=== PATIENT | female | born 1935 | race Caucasian/White ===

== ENCOUNTER 2016-09-22 16:05 | Inpatient (IN) | payer MEDICARE ==
[~2016-09-22] VITALS: Ht 165.1 cm; Wt 75.0 kg
[2016-09-22 16:07] VITALS: BP 158/74; PULSE 104; RESP 24; TEMP 97.4; O2SAT 98
[2016-09-22] MEDS ORDERED: ONDANSETRON HCL 4 MG/2 ML VIAL IV PUSH ONE (16:30)
[2016-09-22] MEDS ORDERED: SODIUM CHLORIDE 0.9% FLUSH 10 ML FLUSH IVF PRN (16:30)
[2016-09-22] MEDS ORDERED: MORPHINE SULFATE 4 MG/ML INJ IV PUSH ONE (16:30)
--- NOTE | 2016-09-22 16:39 | PD ---
HPI Chief Complaint: Respiratory Symptoms Time Seen by Provider: 16:23 Travel History International Travel<30 days: No Contact w/Intl Traveler<30days: No Traveled to known affect area: No History of Present Illness HPI PT HAS HAD 2 DAYS OF SHARP RT SIDED CP, WORSE WITH BREATHING OR COUGHING, NO WEIGHTLOSS, BUT POSITVE HEMOPTYSIS AND FEVER/CHILLS PER PT HISTORY PFSH Past Medical History Medical History: Denies Significant Hx Past Surgical History Surgical History: No Previous Surgery Social History Tobacco Use: No Allergies-Medications (Allergen,Severity, Reaction): Coded Allergies: No Known Allergies (Unverified , 09/22/16) Review of Systems Cardiovascular: Positive: Chest Pain or Discomfort Respiratory: Positive: Hemoptysis, Night Sweats Physical Exam Narrative GENERAL: SKIN: Warm and dry. HEAD: Atraumatic. Normocephalic. EYES: Pupils equal and round. No scleral icterus. No injection or drainage. ENT: No nasal bleeding or discharge. Mucous membranes pink and moist. NECK: Trachea midline. No JVD. CARDIOVASCULAR: Regular rate and rhythm. RESPIRATORY: No accessory muscle use. LUNG SOUNDS CLEAR EXCEPT RLL WHICH CRACKLES, NO WHEEZING/STRIDOR/UVULAR EDEMA...NO CREPITUS, NO THORACIC RASH.. GASTROINTESTINAL: Abdomen soft, non-tender, nondistended. Hepatic and splenic margins not palpable. MUSCULOSKELETAL: Extremities without clubbing, cyanosis, or edema. No obvious deformities. NEUROLOGICAL: Awake and alert. No obvious cranial nerve deficits. Motor grossly within normal limits. Five out of 5 muscle strength in the arms and legs. Normal speech. PSYCHIATRIC: Appropriate mood and affect; insight and judgment normal. Data Data Last Documented VS Vital Signs Date Time Temp Pulse Resp B/P Pulse Ox O2 Delivery O2 Flow Rate FiO2 09/22/16 17:36 95 18 09/22/16 17:36 Room Air 09/22/16 16:07 97.4 158/74 98 Orders Electrocardiogram (09/22/16 16:30) B-Type Natriuretic Peptide (09/22/16 16:30) Ckmb (Isoenzyme) Profile (09/22/16 16:30) Complete Blood Count With Diff (09/22/16 16:30) Comprehensive Metabolic Panel (09/22/16 16:30) Prothrombin Time / Inr (Pt) (09/22/16 16:30) Act Partial Throm Time (Ptt) (09/22/16 16:30) Troponin I (09/22/16 16:30) Lipase (09/22/16 16:30) Chest, Single Ap (09/22/16 16:30) Ecg Monitoring (09/22/16 16:30) Bilateral Bp Monitoring (09/22/16 16:30) Iv Access Insert/Monitor (09/22/16 16:30) Oximetry (09/22/16 16:30) Oxygen Administration (09/22/16 16:30) Morphine Inj (Morphine Inj) (09/22/16 16:30) Sodium Chloride 0.9% Flush (Ns Flush) (09/22/16 16:30) Ct Pulmonary Angiogram (09/22/16 16:30) Ondansetron Inj (Zofran Inj) (09/22/16 16:30) Lactic Acid Sepsis Protocol (09/22/16 16:45) Ceftriaxone Inj (Rocephin Inj) (09/22/16 16:45) Azithromycin Inj (Zithromax Inj) (09/22/16 16:45) Labs Laboratory Tests Test 09/22/16 17:25 White Blood Count 13.1 TH/MM3 Red Blood Count 4.88 MIL/MM3 Hemoglobin 14.0 GM/DL Hematocrit 41.6 % Mean Corpuscular Volume 85.3 FL Mean Corpuscular Hemoglobin 28.7 PG Mean Corpuscular Hemoglobin 33.7 % Concent Red Cell Distribution Width 12.8 % Platelet Count 389 TH/MM3 Mean Platelet Volume 8.5 FL Neutrophils (%) (Auto) 64.0 % Lymphocytes (%) (Auto) 23.5 % Monocytes (%) (Auto) 10.4 % Eosinophils (%) (Auto) 1.0 % Basophils (%) (Auto) 1.1 % Neutrophils # (Auto) 8.4 TH/MM3 Lymphocytes # (Auto) 3.1 TH/MM3 Monocytes # (Auto) 1.4 TH/MM3 Eosinophils # (Auto) 0.1 TH/MM3 Basophils # (Auto) 0.1 TH/MM3 CBC Comment DIFF FINAL Differential Comment Prothrombin Time 12.7 SEC Prothromb Time International 1.1 RATIO Ratio Activated Partial 28.2 SEC Thromboplast Time MDM Medical Decision Making Medical Screen Exam Complete: Yes Emergency Medical Condition: Yes Medical Record Reviewed: Yes Differential Diagnosis PNA, PE, PLEURISY, Narrative Course PT STATES ONE DAY OF PLEURITIC CP ON RLL REGION Diagnosis Primary Impression: Pneumonia Qualified Code: J18.1 - Pneumonia of right lower lobe due to infectious organism Admitting Information Admitting Physician Requests: Admit Fernando Angulo MD September 22, 2016 16:39
[2016-09-22] MEDS ORDERED: AZITHROMYCIN INJ 500 MG in SODIUM CHLOR 0.9% 250 ML INJ 250 ML IV ONE (16:45)
[2016-09-22] MEDS ORDERED: cefTRIAXone INJ 1,000 MG in SODIUM CHLORIDE 0.9% INJ 100 ML IV ONE (16:45)
--- NOTE | 2016-09-22 17:04 | RADRPT ---
EXAM DATE/TIME: 09/22/2016 16:38 [facility] COMPARISON: No previous studies available for comparison. INDICATIONS : Chest pain and dyspnea. MEDICAL HISTORY : None. SURGICAL HISTORY : None. ENCOUNTER: Initial ACUITY: 3 days PAIN SCORE: 7/10 LOCATION: Right lower chest FINDINGS: The exam demonstrates a small effusion at the right base and consolidated infiltrate in the right low er lobe. The left lung is clear. The heart is mildly enlarged. Visualized bony structures demonstrate degenerative changes but are otherwise intact. CONCLUSION: Right basilar effusion and infiltrate concerning for pneumonia. Mingo Watson MD on September 22, 2016 at 17:02 Board Certified Radiologist. This report was verified electronically.
[2016-09-22 17:36] VITALS: PULSE 95; RESP 18
[2016-09-22 17:42] LABS: AUTOMATED NEUTROPHIL # 8.4 TH/MM3 (1.8-7.7); BASOPHIL # 0.1 TH/MM3 (0-0.2); BASOPHIL % 1.1 % (0.0-2.0); EOSINOPHIL # 0.1 TH/MM3 (0-0.4); HEMATOCRIT 41.6 % (35.0-46.0); HEMO FLAGS DIFF FINAL; LYMPH % 23.5 % (9.0-44.0); LYMPHOCYTE # 3.1 TH/MM3 (1.0-4.8); MEAN CELL VOLUME 85.3 FL (80.0-100.0); MEAN CORPUSCULAR HEMOGLOBIN 28.7 PG (27.0-34.0); MEAN CORPUSCULAR HGB CONC 33.7 % (32.0-36.0); MONO % 10.4 % (0.0-8.0); PLATELET COUNT 389 TH/MM3 (150-450); RED BLOOD COUNT 4.88 MIL/MM3 (4.00-5.30); RED CELL DISTRIBUTION WIDTH 12.8 % (11.6-17.2); WHITE BLOOD COUNT 13.1 TH/MM3 (4.0-11.0)
[2016-09-22 17:51] LABS: APTT (PATIENT) 28.2 SEC (24.3-30.1); INTERNATIONAL NORMALIZED RATIO 1.1 RATIO; PROTHROMBIN TIME - PATIENT 12.7 SEC (9.8-11.6)
[2016-09-22 18:05] LABS: ALT (GPT) 22 U/L (10-53); ANION GAP 12 MEQ/L (5-15); AST (GOT) 24 U/L (15-37); BICARBONATE 20.4 MEQ/L (21.0-32.0); BLOOD UREA NITROGEN 10 MG/DL (7-18); CHLORIDE 99 MEQ/L (98-107); GLOMERULAR FILTRATION RATE 57 ML/MIN (>89); POTASSIUM 4.3 MEQ/L (3.5-5.1); SODIUM (NA) 131 MEQ/L (136-145)
[2016-09-22 18:09] LABS: ALKALINE PHOSPHATASE 108 U/L (45-117); TOTAL BILIRUBIN ADULT 0.8 MG/DL (0.2-1.0)
[2016-09-22 18:27] LABS: CREATINE KINASE 58 U/L (26-192)
[2016-09-22] MEDS ORDERED: SODIUM CHLORIDE 0.9% FLUSH 10 ML FLUSH IV FLUSH PRN (20:00)
[2016-09-22] MEDS ORDERED: NALOXONE HCL 0.4 MG/ML AMP IV PRN (20:00)
[2016-09-22] MEDS ORDERED: IOHEXOL 350 MG/ML 10 ML VIAL (for RAD DIAG) IV ONE (20:11)
--- NOTE | 2016-09-22 20:27 | RADRPT ---
EXAM DATE/TIME: 09/22/2016 20:01 [facility] COMPARISON: CHEST SINGLE AP, September 22, 2016, 16:38. INDICATIONS : Stabbing pain in right chest, hemopytsis, diaphoretic IV CONTRAST: 65 cc Omnipaque 350 (iohexol) IV RADIATION DOSE: 9.81 CTDIvol (mGy) MEDICAL HISTORY : None SURGICAL HISTORY : None. ENCOUNTER: Initial ACUITY: 1 day PAIN SCALE: 6/10 LOCATION: Right chest TECHNIQUE: Volumetric scanning of the chest was performed using a pulmonary embolism protocol MIP images were re constructed. Using automated exposure control and adjustment of the mA and/or kV according to patien t size, radiation dose was kept as low as reasonably achievable to obtain optimal diagnostic quality images. FINDINGS: There is a 4.5 x 3.3 cm right hilar mass with postobstructive pneumonia as well as adenopathy in the right hilum measuring 3.3 cm. Subcarinal adenopathy is also present. No contralateral adenopathy is s een. No pleural effusions are identified. No other nodules are identified There is possible metastatic disease to segment 7 the liver measuring 10 mm. MRI is recommended for f urther evaluation if clinically indicated.There is a single stone within the gallbladder without wall thickening or pericholecystic fluid measuring 15 mmThe adrenal glands are unremarkable. CONCLUSION: 1. 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 2. This would be accessible to percutaneous biopsy. 3. PET/CT scan is recommended to further evaluation if clinically indicated. 4. Possible hepatic metastasis Amado Shields MD on September 22, 2016 at 20:19 Board Certified Radiologist. This report was verified electronically.
[2016-09-22 20:35] VITALS: BP 149/70; PULSE 95; RESP 20; TEMP 98.6; O2SAT 99
[2016-09-22] MEDS: SODIUM CHLORIDE 0.9% FLUSH 10 ML FLUSH IV FLUSH SCH (21:00)
[2016-09-22 21:20] VITALS: PULSE 94
--- NOTE | 2016-09-22 21:42 | HHI.HP ---
HPI Service [facility] Primary Care Physician No Primary Care Physician Admission Diagnosis RLL PNEUMONIA Diagnoses: (1) Pneumonia (2) Right lower lobe lung mass Chief Complaint: cough with hemoptysis Travel History International Travel<30 Days: No Contact w/Intl Traveler <30 Da: No Traveled to Known Affected Are: No History of Present Illness Written by Shwetha Rios, acting as scribe for Dr. Valencia on 09/22/16 at 21:22. Ms. Gonzalez is a pleasant 80 year-old female with no significant past medical history who presented to the emergency room for evaluation of sharp right-sided chest pain with cough and hemoptysis. CXR shows right basilar effusion and infiltrate concerning for pneumonia. CT pulmonary angiogram shows 4.5 cm right lower lobe mass characteristic of malignancy with metastatic adenopathy to the right hilum and middle mediastinum. Possible hepatic metastasis. The patient is seen in the CDU. She states that she awoke Tuesday morning with pain in her right upper abdominal quadrant/right lower thorax and radiating to her right shoulder; she says that she prayed, the pain went away, and she fell asleep. Then she awakened from her nap, got up to make something to eat, and started coughing - then noted hemoptysis. She says she was sick from Tuesday until today with cough and hemoptysis - round spots of blood on tissue. She denies shortness of breath after pain subsided on Tuesday. She denies nausea, vomiting, diarrhea, and recorded fever but has had night sweats. No black or red stool, hematuria, dysuria, falls, syncope, or dizziness. Denies hypertension, diabetes mellitus, heart problems, or liver/kidney problems. Review of Systems Except as stated in HPI: all other systems reviewed are Neg Past Family Social History Past Medical History Denies any medical problems . Past Surgical History Hysterectomy at age 28 . Reported Medications Reported Meds & Active Scripts Active No Active Prescriptions or Reported Medications . Allergies: Coded Allergies: No Known Allergies (Unverified , 09/22/16) Active Ordered Medications Current Medications Morphine Sulfate (Morphine Inj) 2 mg ONCE ONCE IV PUSH ; Start 09/22/16 at 16: 30; Stop 09/22/16 at 16:34; Status DC Sodium Chloride (NS Flush) 2 ml UNSCH PRN IVF FLUSH AFTER USING IV ACCESS; Start 09/22/16 at 16:30; Stop 09/22/16 at 19:56; Status DC Ondansetron HCl 4 mg 4 mg ONCE ONCE IV PUSH Last administered on 09/22/16 17: 51; Start 09/22/16 at 16:30; Stop 09/22/16 at 16:34; Status DC Ceftriaxone Sodium 1000 mg/ Sodium Chloride 100 ml @ 200 mls/hr ONCE ONCE IV Last administered on 09/22/16 19:44; Start 09/22/16 at 16:45; Stop 09/22/16 at 17:14; Status DC Azithromycin/ Sodium Chloride (Zithromax Inj/ NS 250 ml Inj) 250 ml @ 250 mls/ hr ONCE ONCE IV Last administered on 09/22/16 17:50; Start 09/22/16 at 16:45 ; Stop 09/22/16 at 17:44; Status DC Sodium Chloride (NS Flush) 2 ml UNSCH PRN IV FLUSH FLUSH AFTER USING IV ACCESS ; Start 09/22/16 at 20:00 Sodium Chloride (NS Flush) 2 ml BID IV FLUSH ; Start 09/22/16 at 21:00 Naloxone HCl 0.4 mg 0.4 mg UNSCH PRN IV SEE LABEL COMMENTS; Start 09/22/16 at 20:00 Ceftriaxone Sodium 1000 mg/ Sodium Chloride 100 ml @ 200 mls/hr Q12H IV ; Start 09/23/16 at 06:00 Azithromycin/ Sodium Chloride (Zithromax Inj/ NS 250 ml Inj) 250 ml @ 250 mls/ hr Q24H IV ; Start 09/23/16 at 18:00 Iohexol (Omnipaque 350 Inj) 65 ml STK-MED ONCE IV Last administered on 20:11; Start 09/22/16 at 20:11; Stop 09/22/16 at 20:12; Status DC . Family History Grandmother and Aunt from pericardial effusion Maternal sister in 20's with breast CA . Social History Tobacco: quit smoking 5 years ago - smoked for 30 years Alcohol: denies [place]; she as 5 kids, 14 grandchildren, and 15 great grandchildren Yazidi: [employer] and she would like spiritual support SHE LIVES BY HERSELF . Physical Exam Vital Signs Vital Signs Date Time Temp Pulse Resp B/P Pulse Ox O2 Delivery O2 Flow Rate FiO2 09/22/16 20:35 98.6 95 20 149/70 99 09/22/16 17:36 95 18 09/22/16 17:36 Room Air 09/22/16 17:36 95 Room Air 09/22/16 17:36 18 Room Air 09/22/16 16:07 97.4 104 24 158/74 98 Room Air Physical Exam GENERAL: This is an elderly female patient, with some noted emotional distress related to complex family dynamics. SKIN: No rashes, ecchymoses or lesions. Cool and dry. HEAD: Atraumatic. Normocephalic. EYES: No scleral icterus. No injection or drainage. ENT: Nose without bleeding, purulent drainage. NECK: Trachea midline. No JVD or lymphadenopathy. CARDIOVASCULAR: Regular rate and rhythm without murmurs, gallops, or rubs. RESPIRATORY: Breath sounds diminished on right. No wheezes, rales, or rhonchi. GASTROINTESTINAL: Abdomen soft, non-tender, nondistended. No guarding. MUSCULOSKELETAL: Extremities without clubbing, cyanosis, or edema. No calf tenderness. NEUROLOGICAL: Awake and alert. Motor and sensory grossly within normal limits. Normal speech. . Laboratory Laboratory Tests Test 09/22/16 09/22/16 09/22/16 16:30 17:20 17:25 B-Type Natriuretic Peptide 53 Lactic Acid Level 2.0 White Blood Count 13.1 Red Blood Count 4.88 Hemoglobin 14.0 Hematocrit 41.6 Mean Corpuscular Volume 85.3 Mean Corpuscular Hemoglobin 28.7 Mean Corpuscular Hemoglobin 33.7 Concent Red Cell Distribution Width 12.8 Platelet Count 389 Mean Platelet Volume 8.5 Neutrophils (%) (Auto) 64.0 Lymphocytes (%) (Auto) 23.5 Monocytes (%) (Auto) 10.4 Eosinophils (%) (Auto) 1.0 Basophils (%) (Auto) 1.1 Neutrophils # (Auto) 8.4 Lymphocytes # (Auto) 3.1 Monocytes # (Auto) 1.4 Eosinophils # (Auto) 0.1 Basophils # (Auto) 0.1 CBC Comment DIFF FINAL Differential Comment Prothrombin Time 12.7 Prothromb Time International 1.1 Ratio Activated Partial 28.2 Thromboplast Time Sodium Level 131 Potassium Level 4.3 Chloride Level 99 Carbon Dioxide Level 20.4 Anion Gap 12 Blood Urea Nitrogen 10 Creatinine 0.94 Estimat Glomerular Filtration 57 Rate Random Glucose 120 Calcium Level 9.7 Total Bilirubin 0.8 Aspartate Amino Transf 24 (AST/SGOT) Alanine Aminotransferase 22 (ALT/SGPT) Alkaline Phosphatase 108 Total Creatine Kinase 58 Troponin I LESS THAN 0.02 Total Protein 8.2 Albumin 3.1 Lipase 166 Result Diagram: 09/22/16 1725 09/22/16 1725 Imaging Last Impressions Chest X-Ray 09/22/16 1630 Signed Impressions: Service Date/Time: Thursday, September 22, 2016 16:38 - CONCLUSION: Right basilar effusion and infiltrate concerning for pneumonia. Mingo Watson MD CT Angiography 09/22/16 1630 Signed Impressions: Service Date/Time: Thursday, September 22, 2016 20:01 - CONCLUSION: 1. 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 2. This would be accessible to percutaneous biopsy. 3. PET/CT scan is recommended to further evaluation if clinically indicated. 4. Possible hepatic metastasis Amado Shields MD . Assessment and Plan Problem List: (1) Pneumonia ICD Code: J18.9 Status: Acute (2) Right lower lobe lung mass ICD Code: R91.8 Status: Acute Assessment and Plan Ms. Gonzalez is a pleasant 80 year-old female with no significant past medical history who presented to the emergency room for evaluation of sharp right-sided chest pain with cough and hemoptysis. Right lower lobe pneumonia - CXR shows right basilar effusion and infiltrate concerning for pneumonia. - Ceftriaxone and Azithromycin IV - Monitor vital signs every 4 hours - PT consultation to avoid further debility Right lung mass - suspicious for metastatic malignancy - CT pulmonary angiogram shows 4.5 cm right lower lobe mass characteristic of malignancy with metastatic adenopathy to the right hilum and middle mediastinum. Possible hepatic metastasis - patient does not want to know if this is cancer - patient does not want to have biopsy - patient states she would not take any treatment for cancer if she was diagnosed; she would not want radiation, chemotherapy, and/or surgery - She was advised to think about this overnight and informed that she can change her mind at any time and proceed with tissue diagnosis HAS VERY COMPLEX FAMILY DYNAMICS, POOR SOCIAL SUPPORT - LIVES ALONE - SHE NEEDS A LIVING WILL, HEALTHCARE SURROGATE DESIGNATION, AND COMMUNITY DNR - SHE WOULD REALLY LIKE TO HAVE A FAMILY MEETING - Consult palliative care for assistance DVT prophylaxis . TEDs/SCDs This note was transcribed by [email or web address] [Shwetha Rios]. I, Dr. Alan Valencia personally performed the history, physical exam, and medical decision making; and confirmed the accuracy of the information in the transcribed note. Authenticated by Dr. Alan Valencia on 09/22/16 at 21:22. Code Status DNR . Discussed Condition With ER physician, patient . Problem Qualifiers (1) Pneumonia: Qualified Code: J18.1 - Pneumonia of right lower lobe due to infectious organism Shwetha Rios September 22, 2016 21:42 Alan Valencia MD Oct 18, 2016 12:40
[2016-09-23] VITALS (7 sets, daily range): BP systolic 108–133; BP diastolic 54–75; PULSE 82–99; RESP 16–22; TEMP 97.6–98.2; O2SAT 93–96
[2016-09-23] MEDS: cefTRIAXone INJ 1,000 MG in SODIUM CHLORIDE 0.9% INJ 100 ML IV SCH ×2 (05:37→19:12)
[2016-09-23 06:48] LABS: AUTOMATED NEUTROPHIL # 4.5 TH/MM3 (1.8-7.7); BASOPHIL # 0.1 TH/MM3 (0-0.2); BASOPHIL % 0.9 % (0.0-2.0); EOSINOPHIL # 0.2 TH/MM3 (0-0.4); EOSINOPHIL % 1.7 % (0.0-4.0); HEMATOCRIT 38.2 % (35.0-46.0); HEMO FLAGS DIFF FINAL; LYMPH % 34.5 % (9.0-44.0); MEAN CELL VOLUME 85.1 FL (80.0-100.0); MEAN CORPUSCULAR HEMOGLOBIN 29.3 PG (27.0-34.0); MEAN CORPUSCULAR HGB CONC 34.4 % (32.0-36.0); MONO % 11.9 % (0.0-8.0); PLATELET COUNT 339 TH/MM3 (150-450); RED BLOOD COUNT 4.48 MIL/MM3 (4.00-5.30); RED CELL DISTRIBUTION WIDTH 12.7 % (11.6-17.2); WHITE BLOOD COUNT 8.8 TH/MM3 (4.0-11.0)
[2016-09-23 07:17] LABS: POTASSIUM 4.1 MEQ/L (3.5-5.1)
--- NOTE | 2016-09-23 09:52 | PD.CONS ---
Consult Service Palliative Care . Consult Requested By Dr. Valencia . Primary Care Physician No Primary Care Physician . Reason for Consultation a. To assist with evaluation and management of symptoms including: dyspnea, cough. b. To assist medical decision maker(s) with: better understanding of current medical conditions; weighing benefits/burdens of medical treatment options; making medical treatment decisions. . HPI History of Present Illness Ms. Gonzalez is a pleasant 80 year-old female with no significant past medical history. Patient presented to [facility] emergency room on 09/22/16 for evaluation of sharp right-sided chest pain with cough and hemoptysis. Patient reported she awoke Tuesday morning with pain in her right upper abdominal quadrant/right lower thorax and radiating to her right shoulder. Notes indicate she prayed, the pain went away and she fell asleep. Then she awakened from her nap, got up to make something to eat, and started coughing - then noted hemoptysis. She reported cough and hemoptysis started on Tuesday. She denied shortness of breath after pain subsided on Tuesday. She denied nausea, vomiting, diarrhea and has had night sweats. No black or red stool, hematuria, dysuria, falls, syncope, or dizziness. Initial findings revealed: * WBC 13.1, hemoglobin 14, hematocrit 41.6, platelet 389, neutrophil 64% * sodium 131, potassium 4.3, chloride 99, carbon dioxide 20.4, BUN 10, creatinine 0.94, GFR 57, glucose 120 * lactic acid 2.0 * total bilirubin 0.8, AST 24, ALT 22, alkaline phosphatase 108 * PT 12.7, INR 1.1, APTT 28.2 * total creatine kinase 58, troponin less than 0.02 * BNP 53 * total protein 8.2, albumin 3.1 * lipase 166 * Chest x-ray revealed right basilar effusion and infiltrate concerning for pneumonia. * CT angiogram revealed 4.5 cm right lower lobe mass characteristic of malignancy with adenopathy to the right hilum and middle mediastinum and possible hepatic metastasis. Patient is admitted with pneumonia and right lower lobe lung mass concerning for malignancy. Patient was started on ceftriaxone and is azithromycin IV. Notes indicate patient DOES NOT want to know if she has cancer, did not want to proceed with biopsy, indicates she would not accept treatment for cancer including radiation, chemotherapy and/or surgery. Palliative care is consulted to assist with symptom management, completion of advance directives, assisting with clarification of treatment goals and communication with family. Notes indicate this patient has complex family dynamics and poor social support. Palliative care will attempt to arrange family meeting. . Function/Cognitive Trajectory Lives alone. She has been independent. Sister reports she could use help with housekeeping and meals. . Review of Systems Constitutional: COMPLAINS OF: Fatigue, Change in appetite (decreased) Respiratory: COMPLAINS OF: Cough, Hemoptysis, Sputum production, Shortness of breath Cardiovascular: COMPLAINS OF: Chest pain, Dyspnea on Exertion Hematologic/Lymphatics: COMPLAINS OF: Bruising Psychiatric: COMPLAINS OF: Anxiety Past Family Social History Coded Allergies: No Known Allergies (Unverified , 09/22/16) Past Medical History Denies any medical problems, she indicates she never goes to the doctors. . Past Surgical History Hysterectomy at age 28 . Reported Medications No reported home medications prior to admission. . Current Medications Medications (Trade) Dose Ordered Sig/Rianna Route Start Time Stop Time Status Last Admin (NS Flush) 2 ml UNSCH PRN IV FLUSH 09/22/16 20:00 (NS Flush) 2 ml BID IV FLUSH 09/22/16 21:00 09/22/16 21:00 Naloxone HCl 0.4 mg 0.4 mg UNSCH PRN IV 09/22/16 20:00 Ceftriaxone Sodium 1000 mg/ Sodium Chloride 100 ml @ 200 mls/hr Q12H IV 09/23/16 06:00 09/23/16 05:37 (Zithromax Inj/ NS 250 ml Inj) 250 ml @ 250 mls/hr Q24H IV 09/23/16 18:00 . Family History Grandmother and Aunt from pericardial effusion Maternal sister in 20's with breast CA . Substance Use Tobacco: quit smoking 5 years ago - smoked for 30 years Alcohol:denies Prescription med abuse: none. Illicits: none. . Psychosocial History Lives alone in [place]. She is originally from [place] and [facility]. . Has 5 children, 14 grandchildren, and 15 great grandchildren. . Spiritual/Cultural Factors Amish: [employer]ze [employer] and she would like spiritual support. . Living Will: Never completed Health Care Surrogate: Copy in medical record Durable Power of Oil Well Service Unit Operator: Never completed Date completed: 09/23/16 . Health Care Surrogate(s): Designated health care surrogate paperwork completed naming her sister, Tamra Peters" Odilia. . Today's verbally stated goals: Patient desires comfort focused care, she DOES NOT want to pursue biopsy or aggressive treatment. She wants to go home with home health on oral antibiotics for pneumonia. She will consider hsopcie in the future, she will know when it is time. She completed designation of HCS and [place] DNR form. . Family/friends goals: Spoke with sister, Lou via phone to provide update. She feels hospice would be best for patient given her wishes, she will try to speak with patient. She is willing to serve as HCS if pt loses capacity. . Ethical and Legal Issues Patient is currently capacitated to make her healthcare decisions. Physical Exam Vital Signs Date Time Temp Pulse Resp B/P Pulse Ox O2 Delivery O2 Flow Rate FiO2 09/23/16 08:02 98.0 85 16 108/58 93 09/23/16 03:58 98.2 93 19 110/58 95 09/23/16 00:17 97.9 99 22 125/64 93 09/22/16 21:20 94 09/22/16 20:35 98.6 95 20 149/70 99 09/22/16 17:36 95 18 09/22/16 17:36 Room Air 09/22/16 17:36 95 Room Air 09/22/16 17:36 18 Room Air 09/22/16 16:07 97.4 104 24 158/74 98 Room Air 09/22/16 09/23/16 19:00 07:00 Intake Total 220 ml Balance 220 ml Intake Oral 120 ml IV Total 100 ml Exam CONSTITUTIONAL/GENERAL: This is an elderly patient, in no apparent distress. TUBES/LINES/DRAINS: PIV. SKIN: No jaundice, rashes, or lesions. Ecchymoses on upper extremities. No wounds seen anteriorly. Skin temperature appropriate. Not diaphoretic. HEAD: Atraumatic. Normocephalic. EYES: Pupils equal and round and reactive. Extraocular motions intact. No scleral icterus. No injection or drainage. Fundi not examined. ENT: Hearing grossly normal. Nose without bleeding or purulent drainage. Throat without visible erythema, exudates, masses, or lesions. NECK: Trachea midline. Supple, nontender. No palpable thyroid enlargement or nodularity. CARDIOVASCULAR: Regular rate and rhythm without murmurs, gallops, or rubs. No JVD. Peripheral pulses symmetric. RESPIRATORY/CHEST: Symmetric, unlabored respirations. Clear to auscultation. Breath sounds equal bilaterally. No wheezes, rales, or rhonchi. GASTROINTESTINAL: Abdomen soft, non-tender, nondistended. No guarding. Bowel sounds hypoactive. GENITOURINARY: Without palpable bladder distension. MUSCULOSKELETAL: Extremities without clubbing, cyanosis, or edema. No joint tenderness or effusion noted. No calf tenderness. No mottling or clubbing. LYMPHATICS: No palpable cervical or supraclavicular adenopathy. NEUROLOGICAL: Awake and alert. Follows commands. Cognitively sharp. Moves all extremities. PSYCHIATRIC: No obvious anxiety/depression. no apparent hallucinations or other psychotic thought process. . Diagnostic Tests Laboratory Laboratory Tests Test 09/22/16 09/22/16 09/22/16 09/23/16 16:30 17:20 17:25 06:03 B-Type Natriuretic Peptide 53 PG/ML (0-100) Lactic Acid Level 2.0 mmol/L (0.4-2.0) White Blood Count 13.1 TH/MM3 8.8 TH/MM3 (4.0-11.0) (4.0-11.0) Red Blood Count 4.88 MIL/MM3 4.48 MIL/MM3 (4.00-5.30) (4.00-5.30) Hemoglobin 14.0 GM/DL 13.1 GM/DL (11.6-15.3) (11.6-15.3) Hematocrit 41.6 % 38.2 % (35.0-46.0) (35.0-46.0) Mean Corpuscular Volume 85.3 FL 85.1 FL (80.0-100.0) (80.0-100.0) Mean Corpuscular Hemoglobin 28.7 PG 29.3 PG (27.0-34.0) (27.0-34.0) Mean Corpuscular Hemoglobin 33.7 % 34.4 % Concent (32.0-36.0) (32.0-36.0) Red Cell Distribution Width 12.8 % 12.7 % (11.6-17.2) (11.6-17.2) Platelet Count 389 TH/MM3 339 TH/MM3 (150-450) (150-450) Mean Platelet Volume 8.5 FL 8.4 FL (7.0-11.0) (7.0-11.0) Neutrophils (%) (Auto) 64.0 % 51.0 % (16.0-70.0) (16.0-70.0) Lymphocytes (%) (Auto) 23.5 % 34.5 % (9.0-44.0) (9.0-44.0) Monocytes (%) (Auto) 10.4 % 11.9 % (0.0-8.0) (0.0-8.0) Eosinophils (%) (Auto) 1.0 % (0.0-4.0) 1.7 % (0.0-4.0) Basophils (%) (Auto) 1.1 % (0.0-2.0) 0.9 % (0.0-2.0) Neutrophils # (Auto) 8.4 TH/MM3 4.5 TH/MM3 (1.8-7.7) (1.8-7.7) Lymphocytes # (Auto) 3.1 TH/MM3 3.0 TH/MM3 (1.0-4.8) (1.0-4.8) Monocytes # (Auto) 1.4 TH/MM3 1.0 TH/MM3 (0-0.9) (0-0.9) Eosinophils # (Auto) 0.1 TH/MM3 0.2 TH/MM3 (0-0.4) (0-0.4) Basophils # (Auto) 0.1 TH/MM3 0.1 TH/MM3 (0-0.2) (0-0.2) CBC Comment DIFF FINAL DIFF FINAL Differential Comment Prothrombin Time 12.7 SEC (9.8-11.6) Prothromb Time International 1.1 RATIO Ratio Activated Partial 28.2 SEC Thromboplast Time (24.3-30.1) Sodium Level 131 MEQ/L 134 MEQ/L (136-145) (136-145) Potassium Level 4.3 MEQ/L 4.1 MEQ/L (3.5-5.1) (3.5-5.1) Chloride Level 99 MEQ/L 101 MEQ/L (98-107) (98-107) Carbon Dioxide Level 20.4 MEQ/L 24.0 MEQ/L (21.0-32.0) (21.0-32.0) Anion Gap 12 MEQ/L (5-15) 9 MEQ/L (5-15) Blood Urea Nitrogen 10 MG/DL (7-18) 9 MG/DL (7-18) Creatinine 0.94 MG/DL 0.96 MG/DL (0.50-1.00) (0.50-1.00) Estimat Glomerular Filtration 57 ML/MIN (>89) 56 ML/MIN (>89) Rate Random Glucose 120 MG/DL 113 MG/DL (74-106) (74-106) Calcium Level 9.7 MG/DL 8.9 MG/DL (8.5-10.1) (8.5-10.1) Total Bilirubin 0.8 MG/DL (0.2-1.0) Aspartate Amino Transf 24 U/L (15-37) (AST/SGOT) Alanine Aminotransferase 22 U/L (10-53) (ALT/SGPT) Alkaline Phosphatase 108 U/L (45-117) Total Creatine Kinase 58 U/L (26-192) Troponin I LESS THAN 0.02 NG/ML (0.02-0.05) Total Protein 8.2 GM/DL (6.4-8.2) Albumin 3.1 GM/DL (3.4-5.0) Lipase 166 U/L (73-393) Result Diagram: 09/23/16 0603 09/23/16 0603 Imaging Last Impressions Chest X-Ray 09/22/16 1630 Signed Impressions: Service Date/Time: Thursday, September 22, 2016 16:38 - CONCLUSION: Right basilar effusion and infiltrate concerning for pneumonia. Mingo Watson MD CT Angiography 09/22/16 1630 Signed Impressions: Service Date/Time: Thursday, September 22, 2016 20:01 - CONCLUSION: 1. 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 2. This would be accessible to percutaneous biopsy. 3. PET/CT scan is recommended to further evaluation if clinically indicated. 4. Possible hepatic metastasis Amado Shields MD . Patient/Family Conference Present at Family Conference: Met with patient. Also present Nimco Sauceda LCSW. Spoke with sisterLou via phone to provide update. Family Conference Time (mins): 90 Family Conference Location: Bedside, Telephone Issues Discussed: * Palliative care role, purpose, approach * Additional medical, psychosocial, and spiritual history * Patients general health, functional status, and cognitive changes in the months leading up to the current hospitalization * Patient/family understanding of the current medical problems * Patient/family understanding of prognosis * Patients goals of care as best understood from advance directives and/or conversations and/or values * Current medical treatment options and benefits/burdens of those options * Likely scenarios comparing ongoing aggressive care with a transition to comfort measures only * Questions answered to the best of my ability * Palliative care contact information provided Palliative care met with patient. Also present Nimco Sauceda LCSW. Patient desires comfort focused care, she DOES NOT want to pursue biopsy or aggressive treatment. If she has cancer she DOES NOT want to know. She wants to be allowed to when God says it is her time. She wants to go home with home health on oral antibiotics for pneumonia STEVE. She will consider hospice in the future, she will know when it is time for hospice and is NOT ready to consider hospice at this time. She feels hospice is just for the "end." Lengthy conversation about the benefits of hospice, still not interested yet. She completed designation of HCS and [place] DNR form. Sister feels hospice would be best for patient given her wishes, she will try to speak with patient. She is willing to serve as HCS if pt loses capacity. . Assessment and Plan Disease Oriented Problem List: (1) Pneumonia (2) Right lower lobe lung mass Comment: Likely cancer. . Symptom Scale: (1) Cough 0-10 Scale: Unable to quantify (2) Anxiety 0-10 Scale: 0 Comment: denies today. . (3) Shortness of breath 0-10 Scale: 0 Comment: denies today. Pertinent Non-Medical Issues Psychosocial: . Has 5 children (4 daughters and 1 son). Supported by her sister, Tamra Hartley (Faye). Spiritual: [employer]. Welcomes inbound sales advisor support. Legal: Patient is currently capacitated. Designated health care surrogate Ethical issues impacting care: No known concerns at this time. . Important Contacts * Tamra Hartley (Faye), sister: [phone] . Prognosis Patient elects not to pursue aggressive treatment for what appears to be metastatic cancer, she would be hospice appropriate. . Code Status: No Code Plan * Decision Maker: patient is currently capacitated to make her own health care decisions. She has designated to Tamra Wray (Faye)ci, sister: [phone] as health care surrogate, should she lose capacity. * NO CODE * Palliative care met with patient. Also present Nimco Sauceda LCSW. Patient desires comfort focused care, she DOES NOT want to pursue biopsy or aggressive treatment. If she has cancer she DOES NOT want to know. She wants to be allowed to when God says it is her time. She wants to go home with home health on oral antibiotics for pneumonia STEVE. She will consider hospice in the future, she will know when it is time for hospice and is NOT ready to consider hospice at this time. She feels hospice is just for the "end." Lengthy conversation about the benefits of hospice, still not interested yet. She completed designation of [facility] and [place] DNR form. * SYMPTOMS: Pain:denies any pain since last Tuesday. Dyspnea: denies today. High risk for dyspnea due to pneumonia and lung mass. Cough: secondary to pneumonia and lung mass, likely cancer. * Air Cargo Agent support requested. Air Cargo Agent Dana notified. * Palliative care number provided. * Palliative care will continue to follow throughout hospital course to assist with symptom management and clarification of goals as needed. . Time Spent Total Floor Time (mins): 75 Face to Face Time (mins): 60 >50% Counseling/Coord of Care: Yes Thank you for the opportunity to participate in the care of Ms. Gonzalez. Attestation To help prompt me to consider important information that might be impacting today's encounter and assessment, information from prior notes written by myself or my colleagues may have been "brought forward" into today's note. My signature on this note, however, is an attestation that I personally performed the exam, history, and/or decision-making noted today, and, unless otherwise indicated, the interactions with patient, family, and staff as well as the review of records all occurred today. I also attest that the listed assessment and stated plan reflect my best clinical judgment today based on the combination of historical information, prior notes, and today's exam/ interactions. When time spent is documented, it refers only to time spent today by the signer, or if indicated, combined time spent today by collaborating physician/nurse practitioner. MICHELLE ROLLINS September 23, 2016 09:52
[2016-09-23] MEDS: SODIUM CHLORIDE 0.9% FLUSH 10 ML FLUSH IV FLUSH SCH ×2 (10:53→20:10)
--- NOTE | 2016-09-23 13:40 | HHI.PR ---
Subjective Remarks Follow-up for lung mass and pneumonia. The patient states that she presented with right-sided sharp chest pain and hemoptysis. She denies any shortness of breath. She was able to walk some with PT today. She is tolerating oral intake. She has had multiple relatives and friends including her mother who of cancer. She states that she told herself in the past that she would not want to be diagnosed with cancer because she would not want treatment. She states that her mother was on hospice in 1995, and she does not feel like her mother was well taken care of on hospice so she is not interested. She states that she's been having hot and cold sweats recently. She states she talks to her sister, and plans to move in with her sister discharge. Objective Vitals Vital Signs Date Time Temp Pulse Resp B/P Pulse Ox O2 Delivery O2 Flow Rate FiO2 09/23/16 12:09 97.6 84 17 119/62 94 09/23/16 08:02 98.0 85 16 108/58 93 09/23/16 03:58 98.2 93 19 110/58 95 09/23/16 00:17 97.9 99 22 125/64 93 09/22/16 21:20 94 09/22/16 20:35 98.6 95 20 149/70 99 09/22/16 17:36 95 18 09/22/16 17:36 Room Air 09/22/16 17:36 95 Room Air 09/22/16 17:36 18 Room Air 09/22/16 16:07 97.4 104 24 158/74 98 Room Air I/O 09/22/16 09/22/16 09/22/16 09/23/16 09/23/16 09/23/16 07:00 15:00 23:00 07:00 15:00 23:00 Intake Total 220 ml Balance 220 ml Intake Oral 120 ml IV Total 100 ml Result Diagram: 09/23/16 0603 09/23/16 0603 Imaging Last Impressions Chest X-Ray 09/22/16 1630 Signed Impressions: Service Date/Time: Thursday, September 22, 2016 16:38 - CONCLUSION: Right basilar effusion and infiltrate concerning for pneumonia. Mingo Watson MD CT Angiography 09/22/16 1630 Signed Impressions: Service Date/Time: Thursday, September 22, 2016 20:01 - CONCLUSION: 1. 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 2. This would be accessible to percutaneous biopsy. 3. PET/CT scan is recommended to further evaluation if clinically indicated. 4. Possible hepatic metastasis Amado Shields MD Objective Remarks GENERAL: Well-developed well-nourished. In no acute distress. SKIN: Warm and dry. No lesions noted. HEENT: Normocephalic. Pupils equal and round. Mucous membranes pink and moist. CARDIOVASCULAR: Regular rate and rhythm. No murmur appreciated. RESPIRATORY: No accessory muscle use. Decreased breath sounds and crackles in the right lung base. GASTROINTESTINAL: Abdomen soft, non-tender, nondistended. Bowel sounds x4. MUSCULOSKELETAL: No obvious deformities. No clubbing or cyanosis. No edema. NEUROLOGICAL: Awake and alert. No focal neurological deficits. Moves upper and lower extremities spontaneously. Normal speech. PSYCHIATRIC: Appropriate mood and affect; insight and judgment normal. A/P Problem List: (1) Pneumonia ICD Code: J18.9 Status: Acute (2) Right lower lobe lung mass ICD Code: R91.8 Status: Acute Assessment and Plan Ms. Gonzalez is a pleasant 80 year-old female with no significant past medical history who presented for evaluation of sharp right-sided chest pain with cough and hemoptysis. Right lower lobe pneumonia with sepsis Reviewed: CXR shows right basilar effusion and infiltrate concerning for pneumonia. Tachycardia, tachypnea, leukocytosis. Afebrile. BNP 53. Lactic acid 2.0. - IV Ceftriaxone and Azithromycin - O2 and nebs as needed - Check blood and sputum cultures - PT consultation Right lung mass - suspicious for metastatic malignancy Reviewed: CT pulmonary angiogram shows 4.5 cm right lower lobe mass characteristic of malignancy with metastatic adenopathy to the right hilum and middle mediastinum; possible hepatic metastasis. - Discussed with the patient at length. Patient does not want to know if this is cancer, patient does not want to have biopsy, patient does not want hospice, patient states she would not take any treatment for cancer if she was diagnosed - Palliative care consulted DVT prophylaxis - TEDs/SCDs - No chemoprophylaxis with hemoptysis Discharge Planning Continue IV antibiotics and follow-up cultures. Patient wants to be discharged home to yesterday with her sister when infection is improved. Problem Qualifiers (1) Pneumonia: Qualified Code: J18.1 - Pneumonia of right lower lobe due to infectious organism Onesimo Nicole September 23, 2016 13:40
[2016-09-23] MEDS ORDERED: RESP: ALBUTEROL 1.25 MG/3 ML NEB (PRN) NEB (13:45)
--- NOTE | 2016-09-23 13:48 | EKG ---
Date Performed: 09/22/2016 Time Performed: 16:48:39 PTAGE: 80 years EKG: SINUS TACHYCARDIA LEFT BUNDLE BRANCH BLOCK ABNORMAL ECG NO PREVIOUS TRACING DOCTOR: Luis Gutiérrez Interpretating Date/Time 09/23/2016 13:43:44
[2016-09-23] MEDS ORDERED: AZITHROMYCIN INJ 500 MG in SODIUM CHLOR 0.9% 250 ML INJ 250 ML IV SCH (18:00)
[2016-09-24 01:57] VITALS: PULSE 83
[2016-09-24 04:04] VITALS: BP 116/56; PULSE 80; RESP 18; TEMP 97.9; O2SAT 94
[2016-09-24] MEDS: cefTRIAXone INJ 1,000 MG in SODIUM CHLORIDE 0.9% INJ 100 ML IV SCH (05:06)
[2016-09-24 07:14] VITALS: BP 127/59; PULSE 81; RESP 22; TEMP 98.4; O2SAT 97
[2016-09-24] MEDS: SODIUM CHLORIDE 0.9% FLUSH 10 ML FLUSH IV FLUSH SCH (09:00)
--- NOTE | 2016-09-24 10:40 | HHI.PR ---
Subjective Remarks Follow up for pneumonia. The patient reports feeling better again today. Her shortness of breath has improved. O2 sat stable on room air. She reports a continued dry hacking cough. Denies any fevers/chills. She adamantly wants to go home. She is AAOx4. She continues to refuse hospice, says she's "not there yet". She plans to live with her sister for awhile after discharge. She agrees to [facility]. She has no other medical complaints at this time. Objective Vitals Vital Signs Date Time Temp Pulse Resp B/P Pulse Ox O2 Delivery O2 Flow Rate FiO2 09/24/16 07:14 98.4 81 22 127/59 97 09/24/16 04:04 97.9 80 18 116/56 94 09/24/16 01:57 83 09/23/16 23:45 98.0 82 19 111/54 94 09/23/16 21:36 21 09/23/16 19:50 98.2 94 18 133/75 96 09/23/16 16:10 98.2 87 16 116/65 94 09/23/16 12:09 97.6 84 17 119/62 94 I/O 09/23/16 09/23/16 09/23/16 09/24/16 09/24/16 09/24/16 07:00 15:00 23:00 07:00 15:00 23:00 Intake Total 220 ml 720 ml Balance 220 ml 720 ml Intake Oral 120 ml 720 ml IV Total 100 ml Result Diagram: 09/23/16 0603 09/23/16 0603 Imaging Last Impressions Chest X-Ray 09/22/16 1630 Signed Impressions: Service Date/Time: Thursday, September 22, 2016 16:38 - CONCLUSION: Right basilar effusion and infiltrate concerning for pneumonia. Mingo Watson MD CT Angiography 09/22/16 1630 Signed Impressions: Service Date/Time: Thursday, September 22, 2016 20:01 - CONCLUSION: 1. 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 2. This would be accessible to percutaneous biopsy. 3. PET/CT scan is recommended to further evaluation if clinically indicated. 4. Possible hepatic metastasis Amado Shields MD Procedures None. Medications and IVs Current Medications Medications (Trade) Dose Ordered Sig/Rianna Route Start Time Stop Time Status Last Admin (NS Flush) 2 ml UNSCH PRN IV FLUSH 09/22/16 20:00 (NS Flush) 2 ml BID IV FLUSH 09/22/16 21:00 09/23/16 10:53 Naloxone HCl 0.4 mg 0.4 mg UNSCH PRN IV 09/22/16 20:00 Ceftriaxone Sodium 1000 mg/ Sodium Chloride 100 ml @ 200 mls/hr Q12H IV 09/23/16 06:00 09/24/16 05:06 (Zithromax Inj/ NS 250 ml Inj) 250 ml @ 250 mls/hr Q24H IV 09/23/16 18:00 09/23/16 20:09 A/P Problem List: (1) Pneumonia ICD Code: J18.9 Status: Acute (2) Right lower lobe lung mass ICD Code: R91.8 Status: Acute Assessment and Plan Ms. Gonzalez is a pleasant 80 year-old female with no significant past medical history who presented for evaluation of sharp right-sided chest pain with cough and hemoptysis. Right lower lobe pneumonia with sepsis Reviewed: CXR shows right basilar effusion and infiltrate concerning for pneumonia. Tachycardia, tachypnea, leukocytosis. Afebrile. BNP 53. Lactic acid 2.0. - IV Ceftriaxone and Azithromycin - O2 and nebs as needed - Blood cultures with NGTD, unable to provide sputum sample for culture - PT consultation, recommends [facility] - sepsis resolved - plan to discharge on Levaquin 750mg qd x5days Right lung mass - suspicious for metastatic malignancy: Reviewed: CT pulmonary angiogram shows 4.5 cm right lower lobe mass characteristic of malignancy with metastatic adenopathy to the right hilum and middle mediastinum; possible hepatic metastasis. - Discussed with the patient at length. Patient does not want to know if this is cancer, does not want to have biopsy, does not want hospice, patient states she would not take any treatment for cancer if she was diagnosed. - Palliative care consulted, recommended hospice however patient declined, also discussed with patient's sister - patient is AAOx4, has the capacity to make her own medical decisions at this time, will discharge home with [facility] as patient wishes DVT prophylaxis - TEDs/SCDs - No chemoprophylaxis with hemoptysis Discharge Planning Discharge patient to home with [facility] PT/RN Condition on discharge: Improved Regular Diet as tolerated Ad Vero activity Rx written: Levaquin 750mg qd x5days Follow-up with primary care physician within 1 week Problem Qualifiers (1) Pneumonia: Qualified Code: J18.1 - Pneumonia of right lower lobe due to infectious organism Patricia Velarde PA-C September 24, 2016 10:40 am
[2016-09-24 11:42] VITALS: BP 143/75; PULSE 91; RESP 18; TEMP 98.2; O2SAT 96
--- NOTE | 2016-09-24 12:38 | HHI.DCPOC ---
Discharge Care Plan Diagnosis: (1) Pneumonia (2) Right lower lobe lung mass (3) Shortness of breath (4) Cough Goals to Promote Your Health * To prevent worsening of your condition and complications * To maintain your health at the optimal level Directions to Meet Your Goals Take your medications as prescribed Follow your dietary instruction Follow activity as directed Keep your appointments as scheduled Take your immunizations and boosters as scheduled If your symptoms worsen call your PCP, if no PCP go to Urgent Care Center or Emergency Room Smoking is Dangerous to Your Health. Avoid second hand smoke Call the 24-hour hour crisis hotline for domestic abuse at Patricia Velarde PA-C September 24, 2016 12:38 pm
[2016-09-24] MEDS ORDERED: LEVO750T33 PO (12:39)
--- NOTE | 2016-09-24 12:47 | HHI.FF ---
Face to Face Verification Diagnosis: (1) Pneumonia (2) Right lower lobe lung mass (3) Cough (4) Anxiety (5) Shortness of breath Physical Therapy Order: Evaluate and Treat, Improve ambulation, Strength and gait training Home Health Nursing Order: Medical education Signs/symptoms of disease process Nursing assessment with vital signs I have seen patient Yokasta Gonzalez on 09/24/16. My clinical findings support the need for the requested home health care services because: Patient has SOB Deconditioned w/ increased weakness Limited ability to care for self I certify that my clinical findings support that this patient is homebound because: Unsafe to leave home unassisted Unable to use public transportation Patricia Velarde PA-C September 24, 2016 12:47 pm
== END 2016-09-24 18:43 | disposition home or self-care (01) | DRG 871 ==
LOC: NEPE 16:05 → NEDA 19:25 → NEPGCP 20:30 → OBSVTOIN 09-23 08:50
PROVIDERS: ADMIT Internal Medicine; ATTEND Internal Medicine
DX: A41.9 Sepsis, unspecified organism (principal); J18.9 Pneumonia, unspecified organism; C22.7 Other specified carcinomas of liver; C77.1 Secondary and unspecified malignant neoplasm of intrathoracic lymph nodes; Z51.5 Encounter for palliative care; Z66 Do not resuscitate; Z87.891 Personal history of nicotine dependence
CPT/HCPCS: 71010; 71275; 80048; 80053; 82550; 83605; 83690; 83880; 84484; 85025; 85610; 85730; 87040; 93005; 96374; 96375; G0378; G8987-GP; G8988-GP; J0456; J0696; J2405; J7050; Q9967

== ENCOUNTER 2016-12-21 14:20 | Observation (INO) | payer MEDICARE ==
[~2016-12-21] VITALS: Ht 165.1 cm; Wt 60.0 kg
[~2016-12-21 14:20] MED LIST: LEVO750T33 PO
[2016-12-21 14:22] VITALS: BP 142/64; PULSE 107; RESP 16; TEMP 98.1; O2SAT 95
[2016-12-21 18:29] VITALS: BP 158/70; PULSE 99; RESP 18; O2SAT 98
[2016-12-21 20:50] LABS: POTASSIUM 3.8 MEQ/L (3.5-5.1)
[2016-12-21 20:52] LABS: AUTOMATED NEUTROPHIL # 6.5 TH/MM3 (1.8-7.7); BASOPHIL # 0.1 TH/MM3 (0-0.2); BASOPHIL % 0.8 % (0.0-2.0); EOSINOPHIL # 0.2 TH/MM3 (0-0.4); EOSINOPHIL % 1.5 % (0.0-4.0); HEMATOCRIT 39.7 % (35.0-46.0); HEMO FLAGS DIFF FINAL; LYMPH % 34.9 % (9.0-44.0); LYMPHOCYTE # 4.1 TH/MM3 (1.0-4.8); MEAN CELL VOLUME 82.3 FL (80.0-100.0); MEAN CORPUSCULAR HEMOGLOBIN 27.2 PG (27.0-34.0); MONO % 7.6 % (0.0-8.0); NEUT % 55.2 % (16.0-70.0); PLATELET COUNT 356 TH/MM3 (150-450); RED BLOOD COUNT 4.83 MIL/MM3 (4.00-5.30); RED CELL DISTRIBUTION WIDTH 15.1 % (11.6-17.2); WHITE BLOOD COUNT 11.8 TH/MM3 (4.0-11.0)
[2016-12-21] MEDS ORDERED: IOHEXOL 350 MG/ML 10 ML VIAL (for RAD DIAG) IV ONE (21:17)
--- NOTE | 2016-12-21 21:21 | RADRPT ---
EXAM DATE/TIME: 12/21/2016 21:06 [facility] COMPARISON: No previous studies available for comparison. INDICATIONS : Cephalgia and jaw pain for 2 months. RADIATION DOSE: 32.66 CTDIvol (mGy) MEDICAL HISTORY : Hypertension. SURGICAL HISTORY : Hysterectomy. ENCOUNTER: Initial ACUITY: 2 months PAIN SCALE: 7/10 LOCATION: Bilateral jaw TECHNIQUE: Multiple contiguous axial images were obtained of the head. Using automated exposure control and adj ustment of the mA and/or kV according to patient size, radiation dose was kept as low as reasonably a chievable to obtain optimal diagnostic quality images. DICOM format image data is available electro nically for review and comparison. FINDINGS: CEREBRUM: The ventricles are normal for age. No evidence of midline shift, mass lesion, hemorrhage or acute in farction. No extra-axial fluid collections are seen. Chronic low attenuation seen in the periventric ular white matter. 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 Incidentally seen cavum septum pellucidum. POSTERIOR FOSSA: The cerebellum and brainstem are intact. The 4th ventricle is midline. The cerebellopontine angle i s unremarkable. EXTRACRANIAL: The visualized portion of the orbits is intact. SKULL: The calvaria is intact. No evidence of skull fracture. CONCLUSION: No acute intracranial abnormality. 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 Marko Garcia MD on December 21, 2016 at 21:18 Board Certified Radiologist. This report was verified electronically.
--- NOTE | 2016-12-21 21:26 | PD ---
HPI Chief Complaint: Pain: Acute or Chronic Time Seen by Provider: 16:57 Travel History International Travel<30 days: No Contact w/Intl Traveler<30days: No Traveled to known affect area: No History of Present Illness HPI Patient is 81 years old. She describes right temporomandibular pain for about a month or so which is the primary reason for her visit today. She also notes she is a difficulty breathing and believes it might be due to the fact that her house has holes in it as a consequence of [place]. Patient's sister, a nurse, is concerned it might be a persistent pneumonia is evidently her breathing sounds abnormal. The patient to me denies chest pain however attributes spelled or shortness of breath to an apparent state of emotional excitation. She reports completing a course of oral antibiotics about 2 weeks ago for pneumonia. She was also hospitalized for pneumonia about 3 months prior. [facility] Past Medical History Blood Disorders: No Heart Rhythm Problems: No Cancer: No Cardiovascular Problems: Yes High Cholesterol: Yes Chest Pain: No Congestive Heart Failure: No Endocrine: No Genitourinary: No Hypertension: Yes Musculoskeletal: No Neurologic: No Psychiatric: No Respiratory: No Pneumonia: Yes ?: Not Past Surgical History Hysterectomy: Yes Other Surgery: Yes (Hysterectomy) Social History Alcohol Use: No Tobacco Use: No Substance Use: No Allergies-Medications (Allergen,Severity, Reaction): Coded Allergies: No Known Allergies (Unverified , 12/21/16) Reported Meds & Prescriptions Reported Meds & Active Scripts Active No Active Prescriptions or Reported Medications Review of Systems Except as stated in HPI: all other systems reviewed are Neg General / Constitutional: No: Fever Respiratory: Positive: Shortness of Breath Physical Exam Narrative GENERAL: 81-year-old female pleasant well-nourished well-developed speaking full sentences, coarse breath sounds are audible as she speaks SKIN: Warm and dry. HEAD: Atraumatic. Normocephalic. EYES: Pupils equal and round. No scleral icterus. No injection or drainage. ENT: No nasal bleeding or discharge. Mucous membranes pink and moist. NECK: Trachea midline. No JVD. CARDIOVASCULAR: Tachycardia at about 100 bpm. Regular rhythm. RESPIRATORY: There are coarse breath sounds in the right side. The left lung is clear. Minimal tachypnea present. GASTROINTESTINAL: Abdomen soft, non-tender, nondistended. Hepatic and splenic margins not palpable. MUSCULOSKELETAL: Extremities without clubbing, cyanosis, or edema. No obvious deformities. NEUROLOGICAL: Awake and alert. No obvious cranial nerve deficits. Motor grossly within normal limits. Five out of 5 muscle strength in the arms and legs. Normal speech. PSYCHIATRIC: Appropriate mood and affect; insight and judgment normal. Data Data Last Documented VS Vital Signs Date Time Temp Pulse Resp B/P Pulse Ox O2 Delivery O2 Flow Rate FiO2 12/21/16 18:29 99 18 158/70 98 Room Air 12/21/16 14:22 98.1 Vital signs reviewed Orders Ct Brain W/O Iv Contrast(Rout) (12/21/16 ) Basic Metabolic Panel (Bmp) (12/21/16 19:44) Complete Blood Count With Diff (12/21/16 19:44) Iv Access Insert/Monitor (12/21/16 19:44) Ct Soft Tiss Neck W Iv Cont (12/21/16 ) Iohexol 350 Inj (Omnipaque 350 Inj) (12/21/16 21:17) Blood Culture (12/21/16 21:46) Chest, Single Ap (12/21/16 21:46) Ceftriaxone Inj (Rocephin Inj) (12/21/16 22:00) Azithromycin Inj (Zithromax Inj) (12/21/16 22:00) Sodium Chlor 0.9% 1000 Ml Inj (Ns 1000 M (12/21/16 23:15) Admit Order (Ed Use Only) (12/21/16 23:08) Labs Laboratory Tests Test 12/21/16 12/21/16 20:10 20:43 Sodium Level 133 MEQ/L Potassium Level 3.8 MEQ/L Chloride Level 102 MEQ/L Carbon Dioxide Level 24.0 MEQ/L Anion Gap 7 MEQ/L Blood Urea Nitrogen 9 MG/DL Creatinine 0.72 MG/DL Estimat Glomerular Filtration 77 ML/MIN Rate Random Glucose 96 MG/DL Calcium Level 9.3 MG/DL White Blood Count 11.8 TH/MM3 Red Blood Count 4.83 MIL/MM3 Hemoglobin 13.1 GM/DL Hematocrit 39.7 % Mean Corpuscular Volume 82.3 FL Mean Corpuscular Hemoglobin 27.2 PG Mean Corpuscular Hemoglobin 33.0 % Concent Red Cell Distribution Width 15.1 % Platelet Count 356 TH/MM3 Mean Platelet Volume 7.9 FL Neutrophils (%) (Auto) 55.2 % Lymphocytes (%) (Auto) 34.9 % Monocytes (%) (Auto) 7.6 % Eosinophils (%) (Auto) 1.5 % Basophils (%) (Auto) 0.8 % Neutrophils # (Auto) 6.5 TH/MM3 Lymphocytes # (Auto) 4.1 TH/MM3 Monocytes # (Auto) 0.9 TH/MM3 Eosinophils # (Auto) 0.2 TH/MM3 Basophils # (Auto) 0.1 TH/MM3 CBC Comment DIFF FINAL Differential Comment MDM Medical Decision Making Medical Screen Exam Complete: Yes Emergency Medical Condition: Yes Medical Record Reviewed: Yes Differential Diagnosis Pneumonia, TMJ, effusion, lung mass, anemia, sepsis, dehydration Narrative Course CBC & BMP Diagram 12/21/16 20:10 12/21/16 20:43 Last 24 hours Impressions Chest X-Ray 12/21/166 Signed Impressions: Service Date/Time: Wednesday, December 21, 2016 22:10 - CONCLUSION: Right base pneumonia/mass, worse than before. Marko Garcia MD Neck CT 12/21/16 0000 Signed Impressions: Service Date/Time: Wednesday, December 21, 2016 21:09 - CONCLUSION: 1. 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 2. No abnormality seen of the neck soft tissues. 3. Infiltrate partly seen in the right upper lobe. Marko Garcia MD Head CT 12/21/16 0000 Signed Impressions: Service Date/Time: Wednesday, December 21, 2016 21:06 - CONCLUSION: No acute intracranial abnormality. 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 Marko Garcia MD Rocephin azithromycin started. 1 liters saline started. There is density in the right lung concerning for pneumonia superimposed upon mass. The case discussed with . Results discussed specifically with patient and family. Diagnosis Primary Impression: Pneumonia Qualified Code: J18.9 - Pneumonia of right lung due to infectious organism, unspecified part of lung Additional Impressions: Jaw pain Shortness of breath Admitting Information Admitting Physician Requests: Admit Referrals: Primary Care Physician call for appointment Additional Instructions: You have a choice when it comes to health care, and we are glad that you chose [facility]. Hopefully, we have met your expectations on today's visit. You are welcome to return to [facility] at any time, as we are committed to meeting the health care needs of our community. Scripts No Active Prescriptions or Reported Meds Mingo Dsouza MD Dec 21, 2016 21:26
--- NOTE | 2016-12-21 21:30 | RADRPT ---
EXAM DATE/TIME: 12/21/2016 21:09 [facility] COMPARISON: No previous studies available for comparison. INDICATIONS : Patient complains of inability to open mouth, chew, right jaw pain. IV CONTRAST: 70 cc Omnipaque 350 (iohexol) IV RADIATION DOSE: 16.25 CTDIvol (mGy) MEDICAL HISTORY : Hypertension. SURGICAL HISTORY : Hysterectomy. ENCOUNTER: Initial ACUITY: 2 months PAIN SCALE: 7/10 LOCATION: Right jaw TECHNIQUE: Volumetric scanning of the neck was performed. Using automated exposure control and adjustment of th e mA and/or kV according to patient size, radiation dose was kept as low as reasonably achievable to obtain optimal diagnostic quality images. DICOM format image data is available electronically for r eview and comparison. FINDINGS: NASOPHARYNX: The nasopharyngeal airway has a normal configuration. No mucosal thickening or mass is seen. OROPHARYNX: The intrinsic muscles of the tongue are symmetric. The tonsillar pillars are intact. The prevertebr al soft tissues are not thickened. LARYNX: The supraglottic, glottic, and infraglottic structures are intact. PARAPHARYNGEAL: The parapharyngeal space is intact. SALIVARY GLANDS: The parotid and submandibular glands are intact. LYMPH NODES: No enlarged or necrotic-appearing nodes. THYROID: Homogeneous enhancement without evidence of nodule. BONES: There is bilateral temporomandibular joint space narrowing and chronic appearing bony remodeling. Lowermost axial image partly shows an area of infiltrate in the visualized right upper lobe. CONCLUSION: 1. 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 2. No abnormality seen of the neck soft tissues. 3. Infiltrate partly seen in the right upper lobe. Marko Garcia MD on December 21, 2016 at 21:26 Board Certified Radiologist. This report was verified electronically.
[2016-12-21] MEDS ORDERED: cefTRIAXone INJ 1,000 MG in SODIUM CHLORIDE 0.9% INJ 100 ML IV ONE (22:00)
[2016-12-21] MEDS ORDERED: AZITHROMYCIN INJ 500 MG in SODIUM CHLOR 0.9% 250 ML INJ 250 ML IV ONE (22:00)
--- NOTE | 2016-12-21 22:39 | RADRPT ---
EXAM DATE/TIME: 12/21/2016 22:10 [facility] COMPARISON: No previous studies available for comparison. INDICATIONS : Short of breath. MEDICAL HISTORY : None. SURGICAL HISTORY : None. ENCOUNTER: [facility] ACUITY: 1 month PAIN SCORE: 3/10 LOCATION: Bilateral chest FINDINGS: There is right basilar infiltrate that appears to mainly be in the lower lobe. Previous studies have shown right lower lobe mass. No pleural effusion or pneumothorax. The left lung is clear. Heart size stable, within normal limits. CONCLUSION: Right base pneumonia/mass, worse than before. Marko Garcia MD on December 21, 2016 at 22:36 Board Certified Radiologist. This report was verified electronically.
[2016-12-21 22:56] VITALS: BP 131/62; PULSE 100; RESP 16; O2SAT 97
[2016-12-21] MEDS ORDERED: SODIUM CHLOR 0.9% 1000 ML INJ 1,000 ML IV ONE (23:15)
[2016-12-21] MEDS ORDERED: NALOXONE HCL 0.4 MG/ML AMP IV PRN (23:15)
[2016-12-21] MEDS ORDERED: SODIUM CHLORIDE 0.9% FLUSH 10 ML FLUSH IV FLUSH PRN (23:15)
[2016-12-21] MEDS ORDERED: RESP: IPRATROPIUM 0.5 MG/2.5 ML NEB NEB PRN (23:15)
--- NOTE | 2016-12-21 23:49 | HHI.HP ---
[facility] Unknown Admission Diagnosis pneumonia, dyspnea Diagnoses: Travel History International Travel<30 Days: No Contact w/Intl Traveler <30 Da: No Traveled to Known Affected Are: No History of Present Illness for one and a half month, have been having right jaw pain hard to chew or eat wheezing all the time had hallucinations with neb treatments at home- hallucinating 7ft jonathon with bleeding, worms on bed etc [facility] nurse took neb rx off still does not want to do work up on cancer denies any other symptoms Review of Systems Except as stated in HPI: all other systems reviewed are Neg Past Family Social History Past Medical History lung ca found on ct incidentally last admission Past Surgical History hysterectomy at age 28 Allergies: Coded Allergies: No Known Allergies (Unverified , 12/21/16) Family History Grandmother and Aunt from pericardial effusion Maternal sister in 20's with breast CA Social History Tobacco: quit smoking 5 years ago - smoked for 30 years Alcohol: denies She is originally from [place] and [facility]; she as 5 kids, 14 grandchildren, and 15 great grandchildren Spiritism: Nondenominational of God and she would like spiritual support SHE LIVES BY HERSELF Physical Exam Vital Signs Vital Signs Date Time Temp Pulse Resp B/P Pulse Ox O2 Delivery O2 Flow Rate FiO2 12/21/16 18:29 99 18 158/70 98 Room Air 12/21/16 16:45 108 98 12/21/16 14:22 98.1 107 16 142/64 95 Room Air Physical Exam GENERAL: This is elderly lady, very pleasant, awake, alert, not in distress though with audible wheezing from distance SKIN: No rashes, ecchymoses or lesions. Cool and dry. HEAD: Atraumatic. Normocephalic. No temporal or scalp tenderness. EYES: No scleral icterus. No injection or drainage. ENT: Nose without bleeding, purulent drainage or septal hematoma. Airway patent. NECK: Trachea midline. No JVD RESPIRATORY: Clear to auscultation. Breath sounds equal bilaterally. No wheezes , rales, or rhonchi. GASTROINTESTINAL: Abdomen soft, non-tender, nondistended. No hepato-splenomegaly , or palpable masses. No guarding. MUSCULOSKELETAL: Extremities without clubbingNO, cyanosis, or edema. No joint tenderness, effusion, or edema noted. No calf tenderness. CVS; regular rate and rhythm, no murmur appreciated NEUROLOGICAL: Awake and alert. Motor and sensory grossly within normal limits. Normal speech. Laboratory Laboratory Tests Test 12/21/16 12/21/16 20:10 20:43 Sodium Level 133 Potassium Level 3.8 Chloride Level 102 Carbon Dioxide Level 24.0 Anion Gap 7 Blood Urea Nitrogen 9 Creatinine 0.72 Estimat Glomerular Filtration 77 Rate Random Glucose 96 Calcium Level 9.3 White Blood Count 11.8 Red Blood Count 4.83 Hemoglobin 13.1 Hematocrit 39.7 Mean Corpuscular Volume 82.3 Mean Corpuscular Hemoglobin 27.2 Mean Corpuscular Hemoglobin 33.0 Concent Red Cell Distribution Width 15.1 Platelet Count 356 Mean Platelet Volume 7.9 Neutrophils (%) (Auto) 55.2 Lymphocytes (%) (Auto) 34.9 Monocytes (%) (Auto) 7.6 Eosinophils (%) (Auto) 1.5 Basophils (%) (Auto) 0.8 Neutrophils # (Auto) 6.5 Lymphocytes # (Auto) 4.1 Monocytes # (Auto) 0.9 Eosinophils # (Auto) 0.2 Basophils # (Auto) 0.1 CBC Comment DIFF FINAL Differential Comment Date/Time Procedure Status Source Growth 12/21/16 22:05 Aerobic Blood Culture Received Blood Peripheral Pending 12/21/16 22:05 Anaerobic Blood Culture Received Blood Peripheral Pending Result Diagram: 12/21/16204212/21/162009 Imaging Last 48 hours Impressions Chest X-Ray 12/21/162145 Signed Impressions: Service Date/Time: Wednesday, December 21, 2016 22:10 - CONCLUSION: Right base pneumonia/mass, worse than before. Marko Garcia MD Neck CT 12/21/16 0000 Signed Impressions: Service Date/Time: Wednesday, December 21, 2016 21:09 - CONCLUSION: 1. 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 2. No abnormality seen of the neck soft tissues. 3. Infiltrate partly seen in the right upper lobe. Marko Garcia MD Head CT 12/21/16 0000 Signed Impressions: Service Date/Time: Wednesday, December 21, 2016 21:06 - CONCLUSION: No acute intracranial abnormality. 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 Patient refused further workup regarding her lung lesion. She has been seen by palliative care team in prior admission and she has designated healthcare surrogate and also elected to be DNR. She again tells me that she does not want any further consultations or workup regarding this lung lesion. She is mainly here for her jaw pain. The CT of her neck to main issue arthropathy in her bilateral facial bones. This was explained to the patient. Her pneumonia on imaging study shows worsened from previous studies. Continue nebulizer treatments. Patient received Rocephin and azithromycin in ER. We'll start on levofloxacin 750 mg IV every 24 hours. Case management consult for discharge planning. DVT prophylaxiswith Lovenox. Code Status no code Discussed Condition With patient, ER MD Valencia,Alan GIBSON Dec 21, 2016 23:49
[2016-12-22 04:43] VITALS: BP 135/61; PULSE 90; RESP 14; O2SAT 98
[2016-12-22] MEDS: RESP: IPRATROPIUM 0.5 MG/2.5 ML NEB NEB SCH ×3 (04:52→15:55)
[2016-12-22] MEDS: LEVOFLOXACIN 750 MG PREMIX INJ 150 ML IV SCH ×2 (08:00→08:13)
[2016-12-22 08:05] VITALS: BP 128/73; PULSE 89; RESP 19; TEMP 98.3; O2SAT 97
[2016-12-22] MEDS ORDERED: SODIUM CHLORIDE 0.9% FLUSH 10 ML FLUSH IV FLUSH SCH (09:00)
--- NOTE | 2016-12-22 10:10 | HHI.PR ---
Subjective Remarks Follow-up pneumonia. The patient states that she wants to leave the hospital. She is refusing all care at this time. She is refusing antibiotics. She states that she wants to go home" and if the good Lord wants to take me home because of pneumonia, I will let him". Objective Vitals Vital Signs Date Time Temp Pulse Resp B/P Pulse Ox O2 Delivery O2 Flow Rate FiO2 12/22/16 08:05 98.3 89 19 128/73 97 Room Air 12/22/16 04:51 21 12/22/16 04:43 90 14 135/61 98 Room Air 12/21/16 22:56 100 16 131/62 97 Room Air 12/21/16 18:29 99 18 158/70 98 Room Air 12/21/16 16:45 108 98 12/21/16 14:22 98.1 107 16 142/64 95 Room Air I/O 12/21/16 12/21/16 12/21/16 12/22/16 12/22/16 12/22/16 07:00 15:00 23:00 07:00 15:00 23:00 Intake Total 480 ml Balance 480 ml Intake Oral 480 ml # Voids 1 Result Diagram: 12/21/16204212/21/162009 Imaging Last Impressions Chest X-Ray 12/21/166 Signed Impressions: Service Date/Time: Wednesday, December 21, 2016 22:10 - CONCLUSION: Right base pneumonia/mass, worse than before. Marko Garcia MD Neck CT 12/21/16 0000 Signed Impressions: Service Date/Time: Wednesday, December 21, 2016 21:09 - CONCLUSION: 1. 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 2. No abnormality seen of the neck soft tissues. 3. Infiltrate partly seen in the right upper lobe. Marko Garcia MD Head CT 12/21/16 0000 Signed Impressions: Service Date/Time: Wednesday, December 21, 2016 21:06 - CONCLUSION: No acute intracranial abnormality. 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 Marko Garcia MD Objective Remarks General: Elderly female in no acute distress. Heart: Regular rate and rhythm. No murmur. Lungs: Rhonchi noted on the right. Breathing is nonlabored. Abdomen: Soft, nontender, nondistended. Extremities: Trace bilateral lower extremity edema. There is significant swelling in the left antecubital fossa at the site of prior IV placement. Psych: Alert and oriented. Answers questions appropriately. Procedures None Urinary Catheter: No Vascular Central Line Catheter: No A/P Problem List: (1) Pneumonia ICD Code: J18.9 Status: Acute (2) Jaw pain ICD Code: R68.84 Status: Acute (3) Right lower lobe lung mass ICD Code: R91.8 Status: Acute Assessment and Plan 1. Pneumonia: Continue antibiotics. Patient is refusing to allow a new IV to be placed. Pneumonia is likely persistent due to lung mass. 2. Right lower lobe lung mass: Diagnosed on CTA done 09/22/16. This is highly concerning for malignancy. The patient is refusing any further workup. She states that even if it is cancer she would not want to do anything about it. I have offered to consult hospice, but she is refusing that as well. 3. 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 4. Infiltration of IV: Patient has significant swelling in the left antecubital fossa apparently from the IV infiltrating. She had normal saline running. She reports that it was uncomfortable. Monitor, conservative measures. Discharge Planning The patient states that she will be leaving AGAINST MEDICAL ADVICE. I have counseled her that she needs to have the infection treated or she risks . She states that "I'm going to go home and if the good Lord wants to take me with pneumonia, he will". She is currently refusing all care. She was offered hospice care as she has an apparent lung cancer and is not wanting to pursue any aggressive treatments or further workup. She is also refusing to speak with hospice. Problem Qualifiers (1) Pneumonia: Qualified Code: J18.9 - Pneumonia of right lung due to infectious organism, unspecified part of lung Ramon Flood MD Dec 22, 2016 10:09
[2016-12-22 12:45] VITALS: BP 141/72; PULSE 95; RESP 17; TEMP 96.4; O2SAT 95
--- NOTE | 2016-12-22 20:12 | PD.AMA ---
Against Medical Advice Note Diagnosis: (1) Pneumonia Discharge Disposition: Against Medical Advice Pt Condition on Discharge: Fair AMA Statement Patient Yokasta Gonzalez has decided to leave the hospital against medical advice. This patient has the capacity to refuse care and understands the risks of leaving, including permanent disability and/or , and has had an opportunity to ask questions about her condition. The patient has been informed that she may return for care at any time, and follow up has been arranged/ advised. Frannie Astorga Dec 22, 2016 20:12
[2016-12-22] MEDS ORDERED: cefTRIAXone INJ 1,000 MG in SODIUM CHLORIDE 0.9% INJ 100 ML IV SCH (22:00)
[2016-12-23] MEDS ORDERED: AZITHROMYCIN 250 MG TAB PO SCH
== END 2016-12-22 20:24 | disposition left against medical advice (07) ==
LOC: NEPD 14:20 → INTOOBSV 23:10 → NEDA 23:10 → NEDH 12-22 03:29 → N07B 12-22 12:25
PROVIDERS: ADMIT Family Medicine; ATTEND Family Medicine
DX: J18.9 Pneumonia, unspecified organism (principal); R91.8 Other nonspecific abnormal finding of lung field; I10 Essential (primary) hypertension; M12.9 Arthropathy, unspecified; Z85.118 Personal history of other malignant neoplasm of bronchus and lung; Z87.891 Personal history of nicotine dependence
CPT/HCPCS: 70450; 70491; 71010; 80048; 85025; 87040; 94664; 96365; 96376; 97161; 99285; G0378; G8987; G8988; J0456; J0696; J7030; J7050; J7644; Q9967; J1956